=== PATIENT | female | born 1965 | race Caucasian/White ===

== ENCOUNTER → 2019-01-14 11:53 | Outpatient (CLI) | payer BC, SELFPAY ==
--- NOTE | 2019-01-14 | DI.MG.S_ITS ---
BILATERAL DIGITAL SCREENING MAMMOGRAM 3D/2D WITH CAD: 01/14/2019 CLINICAL: Routine screening. Comparison is made to exams dated: 09/18/2017 mammogram, 03/06/2015 mammogram, and 06/11/2016 mammogram - [facility]. The tissue of both breasts is heterogeneously dense. This may lower the sensitivity of mammography. Current study was also evaluated with a Computer Aided Detection (CAD) system. Linear scar markers overlie the right breast. There are post-operative changes of the right breast. No significant masses, calcifications, or other findings are seen in either breast. There has been no significant interval change. IMPRESSION: NEGATIVE There is no mammographic evidence of malignancy. A 1 year screening mammogram is recommended. This exam was interpreted at Station ID: [id number]. NOTE: For mammograms, a report in lay terms will be sent to the patient. Approximately 15% of breast malignancies will not be visualized mammographically. In the management of a palpable breast mass, a negative mammogram must not discourage biopsy of a clinically suspicious lesion. Electronically Signed By: James Garcia M.D. ecl/:01/14/2019 12:40:06 letter sent: Normal Exam ACR BI-RADS Category 1: Negative [id number]
== END ==
PROVIDERS: PCP Student in an Organized Health Care Education/Training Program; Visit Provider Student in an Organized Health Care Education/Training Program
DX: Z12.31 Encounter for screening mammogram for malignant neoplasm of breast (principal)
CPT/HCPCS: 77063; 77067

== ENCOUNTER 2019-03-02 18:31 | Emergency (ER) | payer OTHER, BC, SELFPAY ==
[2019-03-02 18:32] VITALS: BP 127/83; PULSE 80; RESP 98; TEMP 36.5; O2SAT 99; BMI 20.5
[2019-03-02 20:51] VITALS: BP 110/66; PULSE 65; RESP 14; O2SAT 97
--- NOTE | 2019-03-02 21:23 | ED_ITS ---
HPI - Skin/Abscess/Foreign Bdy <NILAM Sarah-BC - Last Filed: 03/02/19 21:23> General Chief complaint: Skin/Abscess/Foreign Body Stated complaint: staph infection right forearm Time Seen by Provider: 03/02/19 20:17 Source: patient Mode of arrival: ambulatory Limitations: no limitations History of Present Illness HPI narrative: The patient is a 53-year-old female nonsmoker with history of anxiety who presents with a chief complaint of a bacterial skin infection. She was started on doxycycline the morning. She noticed a rash last night, but developed and pustules this morning with redness going up her left arm. She has taken 1 dose of doxycycline. The redness was marked this morning and she states that has not gone beyond the marker. However she is concerned that is not im proved. She denies any fevers nausea vomiting diarrhea. She denies any shortness of breath. She denies any chills or rigors. She states that this morning, 6 tubes of blood were done. She states that wound cultures were taken from the pustules that she noticed. She stated that she is being treated for an aggressive staph infection. Related Data Home Medications Medication Instructions Recorded Confirmed Valacyclovir Hydrochloride 500 mg PO Q DAY #0 06/29/08 (Valtrex) ALBUTEROL (PROVENTIL INHALER) 0.09 mg IH PRN #0 12/07/10 lansoprazole 30 mg PO Q DAY #0 12/07/10 lorazepam [Ativan] 0.5 mg PO HS #0 12/07/10 Review of Systems <NILAM Sarah- - Last Filed: 03/02/19 21:23> Review of Systems GENERAL: Denies chills, fatigue, malaise, fever, sweats. HEENT: Denies sinus pain, ear pain, sore throat, difficulty swallowing, dizziness. RESPIRATORY: Denies dyspnea, cough, wheezing, hemoptysis, sputum. CARDIOVASCULAR: Denies chest pain, palpitations, orthopnea, edema, GASTROINTESTINAL: Denies nausea, vomiting, abdominal pain, diarrhea, constipation, melena. : Denies dysuria, frequency, incontinence, hematuria, urinary retention. MUSCULOSKELETAL: denies weakness, joint pain, or bony pain SKIN: See HPI NEUROLOGIC: Denies weakness, headache, numbness, change in speech, confusion, seizures, incoordination. PSYCHIATRIC: No concerning psychosocial issues. 12 point review of systems is negative except for those stated above PFSH <DOMO Sarah - Last Filed: 03/02/19 21:23> Medical History (Updated 03/02/19 @ 21:21 by DOMO Sarah) Anxiety (Acute) Social History Smoking Status: Never smoker Social History Smoking Status: Never smoker Exam <DOMO Sarah - Last Filed: 03/02/19 21:23> Narrative Exam Narrative: GENERAL: This is a well-nourished, well-developed patient, appears anxious HEAD: Atraumatic. Normocephalic. No temporal or scalp tenderness. EYES: Pupils equal round and reactive. Extraocular motions intact. No scleral icterus. No injection or drainage. ENT: Nose without bleeding, purulent drainage or septal hematoma. Throat without erythema, tonsillar hypertrophy or exudate. Uvula midline. Airway patent. NECK: Trachea midline. No JVD or lymphadenopathy. Supple, nontender, no meningeal signs. CARDIOVASCULAR: Regular rate and rhythm without murmurs, gallops, or rubs. RESPIRATORY: Clear to auscultation. Breath sounds equal bilaterally. No wheezes, rales, or rhonchi. No cough. No increased respiratory effort. No accessory muscle use. GASTROINTESTINAL: Abdomen soft, non-tender, nondistended. No hepato- splenomegaly, or palpable masses. No guarding. EXTREMITIES: No clubbing, cyanosis, or edema. No joint tenderness, effusion, or edema noted. BACK: Nontender without deformity or crepitance. No flank tenderness. NEURO: AOx3. SKIN: 6 pustules noted at the base of the 1st digit of the left hand along the lateral aspect of the wrist. Slight erythema noted traveling vein to mid forearm. This is on the anterior surface of the forearm. Does not go beyond marker. Approximately 8 cm. No palpable warmth. Pustules are 2-3 mm. Initial Vital Signs Initial Vital Signs: Vital Signs Temperature 97.7 F 03/02/19 18:32 Pulse Rate 80 03/02/19 18:32 Respiratory Rate 98 H 03/02/19 18:32 Blood Pressure 127/83 03/02/19 18:32 Pulse Oximetry 99 03/02/19 18:32 <Jose Roberto Giles DO - Last Filed: 03/03/19 00:18> Initial Vital Signs Initial Vital Signs: Vital Signs Temperature 97.7 F 03/02/19 18:32 Pulse Rate 80 03/02/19 18:32 Respiratory Rate 98 H 03/02/19 18:32 Blood Pressure 127/83 03/02/19 18:32 Pulse Oximetry 99 03/02/19 18:32 Course <DOMO Sarah - Last Filed: 03/02/19 21:23> Vital Signs - 8 hr 03/02/19 18:32 03/02/19 20:51 Temperature 97.7 F Pulse Rate 80 65 Respiratory Rate 98 H 14 Blood Pressure 127/83 Blood Pressure [Left Arm] 110/66 Pulse Oximetry 99 97 <Jose Roberto Giles DO - Last Filed: 03/03/19 00:18> Vital Signs - 8 hr 03/02/19 18:32 03/02/19 20:51 Temperature 97.7 F Pulse Rate 80 65 Respiratory Rate 98 H 14 Blood Pressure 127/83 Blood Pressure [Left Arm] 110/66 Pulse Oximetry 99 97 MDM - Skin/Abscess/Foreign Bdy <DOMO Sarah - Last Filed: 03/02/19 21:23> MDM Narrative Medical decision making narrative: The patient is a 53-year-old female who presents with a chief complaint of a worsening skin infection. She has taken 1 dose of antibiotic. Given her exam, I am suspicious of MRSA. The doxycycline that she is on should be treating this. I would also note expected improvement within 1 dose of antibiotics. She has no signs of systemic infection, no fever, no vomiting and is hemodynamically stable. I encouraged the patient to continue taking her antibiotics. I suggested follow-up with her PCP as well as the provider who did all of her blood work to evaluate for her wound culture results. I do not feel the need to repeat this at this point time she decided all done. She presents well and nontoxic in the emergency department. Discussed coming back to the ER for any acute concerns. Patient has no questions or concerns upon discharge. Discharge Plan Departure Patient Disposition: Home Clinical Impression: Bacterial skin infection Discharge Date/Time: 03/02/19 20:54 Interventions: ED Discharge Assessment Last Done: 03/02/19 20:54 Instructions: DI for Skin Abscess Activity Restrictions/Additional Instructions: Please follow up with her primary care physician as well as the walk-in clinic provider. Please monitor for worsening of redness, spreading despite several doses of antibiotics, as well as fever vomiting and signs of systemic illness. These are signs of possible worsening. Please come back to the emergency department for any acute concerns such as inability keep down fluids, high fevers despite [id number] medications etc Prescriptions: No Action Valacyclovir Hydrochloride (Valtrex) 500 mg PO Q DAY Qty: 0 RF: 0 lorazepam [Ativan] 0.5 MG tablet 0.5 mg PO HS Qty: 0 RF: 0 lansoprazole 30 MG capsule,delayed release(DR/EC) 30 mg PO Q DAY Qty: 0 RF: 0 ALBUTEROL (PROVENTIL INHALER) 0.09 mg IH PRN Qty: 0 RF: 0 Referrals: Jessica Ibrahim PA-C [Primary Care Provider] - <Jose Roberto Giles DO - Last Filed: 03/03/19 00:18> Cosign ED Attending Shilpa Attestation: I was available for consultation during this patient's emergency department encounter
== END 2019-03-02 20:54 | disposition home or self-care (01) ==
PROVIDERS: Emergency Provider Nurse Practitioner Family; PCP Student in an Organized Health Care Education/Training Program
DX: L08.9 Local infection of the skin and subcutaneous tissue, unspecified (principal)
CPT/HCPCS: 99282

== ENCOUNTER → 2019-03-03 15:04 | Outpatient (CLI) | payer BC, SELFPAY ==
--- NOTE | 2019-03-03 | DI.US.S_ITS ---
PROCEDURE: US RENAL COMPLETE INDICATIONS: URINARY RETENTION,PELVIC PAIN,POSTMENOPAUSAL BLEED TECHNIQUE: Real-time scanning was performed of the kidneys and bladder, with image documentation. COMPARISON: [facility], CT, KIDNEY/ URETER/BLADDER, 07/21/2011, 14:06. [facility], US, US PELVIC COMPLETE, 03/03/2019, 15:56. FINDINGS: Kidneys: Kidneys are normal in size. Right kidney measures 10.1 cm long; left kidney measures 10.2 cm long. Right renal cortical thickness is 1.6 cm; left renal cortical thickness is 2.0 cm. Renal cortical echotexture is normal. No hydronephrosis. 5 mm left upper pole nonobstructing echogenic focus, probably non-shadowing calculus versus less likely angiomyolipoma. This could be better assessed with CT KUB as clinically necessary. Additional presumed calculus measuring 4 mm in the left kidney superior pole Bladder: Pre-void bladder volume is 481 mL. Post-void residual is 5 mL. Pre-void images demonstrate no intraluminal masses or stones. On pre-void images, bilateral ureteral jets are noted with color Doppler interrogation. (Of note, ureteral jets may not be detectable in up to 25% of cases due to insufficient differences in specific gravity between ureteral and bladder urine). Miscellaneous: No free pelvic fluid. IMPRESSION: Presumed left renal nonobstructive calculi, with differential as above. Approved by: Jori Escoto M.D. on 03/07/2019 at 11:30
--- NOTE | 2019-03-03 | DI.US.S_ITS ---
PROCEDURE: US PELVIC COMPLETE INDICATIONS: POSTMENOPAUSAL BLEEDING, PELVIC PAIN TECHNIQUE: Real-time scanning was performed of the pelvic organs, with image documentation. Additional endovaginal scanning was necessary due to incomplete visualization of the adnexal and endometrial structures by transabdominal scanning. COMPARISON: [facility], , PELVIC COMPLETE, 09/11/2017, 14:44. FINDINGS: Transabdominal scanning: Limited scanning through the kidneys shows no hydronephrosis. No pathologic free abdominal or pelvic fluid. Endovaginal scanning: Uterus: Uterus is normal in size at 6.0 x 3.4 x 2.9 cm. The endometrium is ill defined and there is mild increase vascularity. 2 small intramural fibroids, largest measuring up to 12 mm. Ovaries: Normal ovary measuring 2.2 x 1.7 x 0.9 cm on the right and 1.7 x 0.8 x 0.8 cm on the left. IMPRESSION: 1. The endometrial complexes ill-defined and unable to be accurately measured and there is mild increased vascularity. If indicated, pre and post contrast gynecologic protocol MRI could be performed for further assessment. 2. 2 intramural fibroids, largest measuring up to 12 mm. Dictated by: Mario Tyler [facility] Interpreted: Rosendo Aparicio MD on 03/04/2019 at 9:09 Approved by: Rosendo Aparicio M.D. on 03/04/2019 at 13:58
== END ==
PROVIDERS: PCP Student in an Organized Health Care Education/Training Program; Visit Provider Nurse Practitioner Obstetrics & Gynecology
DX: R10.2 Pelvic and perineal pain (principal); N95.0 Postmenopausal bleeding; D25.1 Intramural leiomyoma of uterus; R33.9 Retention of urine, unspecified
CPT/HCPCS: 76770; 76830; 76856

== ENCOUNTER 2019-03-18 20:23 | Emergency (ER) | payer OTHER, SELFPAY ==
[2019-03-18 20:29] VITALS: BP 121/76; PULSE 70; RESP 15; TEMP 36.4; O2SAT 100; BMI 20.5
--- NOTE | 2019-03-18 20:59 | ED_ITS ---
HPI - Recheck/Abnormal Lab/Rx <BEST Garcia - Last Filed: 03/18/19 22:42> General Chief Complaint: Recheck/Abnormal Lab/Rx Stated Complaint: states has Strep A in her R arm, not better Time Seen by Provider: 03/18/19 20:28 Source: patient Mode of arrival: ambulatory Limitations: no limitations History of Present Illness HPI narrative: 53-year-old female with a history of strep A cellulitis to her right arm for which she recently completed a course of doxycycline for 5 days ago, presents emergency department stating that she has a slight increased redness on her right forearm. She states when she initially she stated she saw a red raised lump the night before and within the morning redness had spread rapidly upper forearm. She was given doxycycline and stated the redness c ompletely resolved. However, today she noticed a 0.5mm x 0.5mm raised lesion on her right forearm and she was worried that she had a recurrent infection. She denies fevers, chills, nausea, chest pain, shortness of breath, pain in her arms, or change in bowel or bladder patterns. Related Data Home Medications Medication Instructions Recorded Confirmed Valacyclovir Hydrochloride 500 mg PO Q DAY #0 06/29/08 (Valtrex) ALBUTEROL (PROVENTIL INHALER) 0.09 mg IH PRN #0 12/07/10 lansoprazole 30 mg PO Q DAY #0 12/07/10 lorazepam [Ativan] 0.5 mg PO HS #0 12/07/10 Previous Rx's Medication Instructions Recorded doxycycline monohydrate 100 mg PO BID 7 Days #14 tab 03/18/19 Allergies Allergy/AdvReac Type Severity Reaction Status Date / Time codeine Allergy Verified 03/18/19 20:29 erythromycin base Allergy Verified 03/18/19 20:29 metronidazole [From Flagyl] Allergy Verified 03/18/19 20:29 Penicillins Allergy Verified 03/18/19 20:29 Sulfa (Sulfonamide Allergy Verified 03/18/19 20:29 Antibiotics) Review of Systems <BEST Garcia - Last Filed: 03/18/19 22:42> Review of Systems REVIEW OF SYSTEMS: GENERAL: Denies fever or chills. HENT: Denies head trauma. EYE: Denies double vision or vision loss. CARDIOVASCULAR: Denies syncope. MUSCULOSKELETAL: Denies weakness, or deformities. INTEGUMENTARY: Complains of small area of erythema to right forearm, see HPI. NEURO: Denies numbness or tingling. PFSH <BEST Garcia - Last Filed: 03/18/19 22:42> Medical History Anxiety (Acute) Social History Smoking Status: Never smoker Social History Smoking Status: Never smoker Exam <BEST Garcia - Last Filed: 03/18/19 22:42> Initial Vital Signs Initial Vital Signs: Vital Signs Temperature 97.5 F L 03/18/19 20:29 Pulse Rate 70 03/18/19 20:29 Respiratory Rate 15 03/18/19 20:29 Blood Pressure 121/76 03/18/19 20:29 Pulse Oximetry 100 03/18/19 20:29 PHYSICAL EXAMINATION: GENERAL: Well groomed, alert, and cooperative. Answers questions promptly and appropriately. Vital signs noted. HENT: Normocephalic, atraumatic. RESPIRATORY: Normal respiratory rate, trachea midline, airway patent. No stridor, nasal flaring or accessory muscle use. MUSCULOSKELETAL: Normal gait and coordination. Equal tone and mass bilaterally. EXTREMITIES: CMS intact. Moves all extremities. SKIN: Warm, dry, soft, appropriate color for ethnicity. 1cm x 1cm laceration erythema to right forearm, slightly indurated region with tenderness to deep palpitation. NEURO: Alert and Oriented X 3. Good coordination. PSYCH: Appropriate affect and mood. <Channing Ruggiero DO - Last Filed: 03/19/19 04:31> Initial Vital Signs Initial Vital Signs: Vital Signs Temperature 97.5 F L 03/18/19 20:29 Pulse Rate 70 03/18/19 20:29 Respiratory Rate 15 03/18/19 20:29 Blood Pressure 121/76 03/18/19 20:29 Pulse Oximetry 100 03/18/19 20:29 Course <BEST Garcia - Last Filed: 03/18/19 22:42> Course Narrative: Upon discussion with patient, a pocket prescription was given if symptoms worsen due to her anxiety about how rapidly her symptoms spread and because is awakened she is unable to access the clinic. Strict instructions were given to patient to not use medication unless her symptoms worsen. Follow- up instructions discussed. Vital Signs - 8 hr 03/18/19 20:29 Temperature 97.5 F L Pulse Rate 70 Respiratory Rate 15 Blood Pressure 121/76 Pulse Oximetry 100 <Channing Ruggiero DO - Last Filed: 03/19/19 04:31> Vital Signs - 8 hr 03/18/19 20:29 Temperature 97.5 F L Pulse Rate 70 Respiratory Rate 15 Blood Pressure 121/76 Pulse Oximetry 100 MDM - Recheck/Abnormal Lab/Rx <BEST Garcia - Last Filed: 03/18/19 22:42> Medical Records Attestation: I reviewed the patient's medical records. Lab Data Attestation: I reviewed the patient's lab results. MDM Narrative Medical decision making narrative: Cellulitis versus general post infections inflammation. Prescription was given if symptoms worsen. Very low concern for systemic infection due to lack of manifestation of systemic symptoms such as fever, or a large amount of present cellulitis. Discharge Plan Departure Patient Disposition: Home Clinical Impression: Cellulitis Qualifiers: Site of cellulitis: extremity Site of cellulitis of extremity: upper extremity Laterality: right Qualified Code(s): L03.113 - Cellulitis of right upper limb Discharge Date/Time: 03/18/19 21:06 Interventions: ED Discharge Assessment Last Done: 03/18/19 21:06 Instructions: DI for Cellulitis -- Adult Activity Restrictions/Additional Instructions: Thank you for entrusting me with your care today. As discussed, it does not appear that you have an infection at this time. However since you just finished a course of antibiotics in that area and you have increasing redness, I am giving a you aprescription to wait to fill if redness worsens or spreads within the next few days please take this medication as prescribed. Follow up with her primary care provider in the next week. Return to the emergency department if he develops high fevers, chest pain, shortness of breath, or syncope. Prescriptions: New doxycycline monohydrate 100 mg tablet 100 mg PO BID 7 Days Qty: 14 RF: 0 No Action Valacyclovir Hydrochloride (Valtrex) 500 mg PO Q DAY Qty: 0 RF: 0 lorazepam [Ativan] 0.5 MG tablet 0.5 mg PO HS Qty: 0 RF: 0 lansoprazole 30 MG capsule,delayed release(DR/EC) 30 mg PO Q DAY Qty: 0 RF: 0 ALBUTEROL (PROVENTIL INHALER) 0.09 mg IH PRN Qty: 0 RF: 0 Referrals: Jessica Ibrahim PA-C [Primary Care Provider] - <Channing Ruggiero DO - Last Filed: 03/19/19 04:31> Cosign ED Attending [place] Attestation: I was immediately available in the department for consultation. Documentation has been reviewed. I agree with assessment and plan.
== END 2019-03-18 21:06 | disposition home or self-care (01) ==
PROVIDERS: Emergency Provider Nurse Practitioner; PCP Student in an Organized Health Care Education/Training Program
DX: L03.113 Cellulitis of right upper limb (principal); Y99.0 Civilian activity done for income or pay
CPT/HCPCS: 99282; 99283

== ENCOUNTER → 2019-09-14 16:37 | Outpatient (ROUT) | payer OTHER, SELFPAY | PROVIDERS: PCP Student in an Organized Health Care Education/Training Program; Visit Provider Obstetrics & Gynecology | DX: N76.0 Acute vaginitis (principal) | CPT/HCPCS: 87480; 87510; 87660 ==

== ENCOUNTER → 2019-11-18 09:00 | Outpatient (CLI) | payer OTHER, SELFPAY ==
[2019-11-20 05:38] LABS: COVID19 Sendout Not Detected (Not Detected)
== END ==
PROVIDERS: PCP Student in an Organized Health Care Education/Training Program; Referring Provider Family Medicine; Visit Provider Family Medicine
DX: Z11.59 Encounter for screening for other viral diseases (principal)
CPT/HCPCS: 87635

== ENCOUNTER → 2020-04-03 15:35 | Outpatient (CLI) | payer OTHER, SELFPAY ==
[2020-04-04 14:08] LABS: COVID19 Sendout Not Detected (Not Detected)
== END ==
PROVIDERS: PCP Student in an Organized Health Care Education/Training Program; Visit Provider Physician Assistant
DX: Z11.59 Encounter for screening for other viral diseases (principal)
CPT/HCPCS: 87635

== ENCOUNTER 2020-04-06 07:20 | Day surgery (SDC) | payer OTHER, SELFPAY ==
[2020-04-06] VITALS (7 sets, daily range): BP systolic 106–111; BP diastolic 66–72; PULSE 64–80; RESP 16–18; TEMP 35.9–36.4; O2SAT 99–100; BMI 21.1
[2020-04-06] MEDS: SODIUM CHLORIDE 0.9% 1,000 ML 200 ML IV (08:14)
--- NOTE | 2020-04-06 08:14 | PM.HP.1 ---
History of Present Illness History of Present Illness Date Patient Seen: 04/06/20 Time Patient Seen: 08:14 Chief complaint: [facility] [place]ative: This is a 54-year-old woman with history of GERD, constipation, urinary tract infections, asthma who has had 2 prior colonoscopies for unexplained abdominal pain. She says both were found to be normal or may be had removed a few polyps. The last 1 was 5 years ago which was told to follow up in 5 years for repeat scope. She denies any melena, hematochezia, unexplained weight loss, or unexplained abdominal pain. She refuses any fentanyl for the procedure and says that all of her previous scopes have been done on Versed only. ROS: Positive for GERD symptoms, constipation, asthma, headache, anemia, eczema. Thirteen system review is otherwise negative other than as mentioned below and in HPI. PE: GENERAL: Well groomed and cooperative. Appears stated age. Answers questions promptly and appropriately. Vital signs noted. HENT: Normocephalic, atraumatic. Hearing intact. EYES: Conjunctiva pink, sclera white, no periorbital swelling. CARDIOVASCULAR: Regular rate. No pedal edema. RESPIRATORY: Non-tachypneic, breathing comfortably on room air. GASTROINTESTINAL: Abdomen soft and non-distended GENITALURINARY: No flank tenderness. MUSCULOSKELETAL: Equal tone and mass bilaterally. SKIN: Warm, dry, soft, appropriate color for ethnicity. No other lesions, rashes, or wounds. NEURO: Alert and Oriented X 3. No gross sensory deficits, or cognitive issues. PSYCH: Appropriate affect and mood. Patient History Medical History Anxiety (Acute) Chicken pox (Resolved) Surgical History Breast tumor (Resolved ~2013) Family & Social History Family History Father Overdose Grandmother Stroke Dementia Grandmother Stroke Dementia Social History: household members none Tobacco & Substance use: Smoking Status Never smoker alcohol intake never Substance Use Type does not use Meds Home Medications and Allergies Home Medications Medication Instructions Recorded Confirmed Type Valacyclovir Hydrochloride 500 mg PO Q DAY #0 06/29/08 11/18/19 History (Valtrex) ALBUTEROL (PROVENTIL INHALER) 0.09 mg IH PRN #0 12/07/10 11/18/19 History lorazepam [Ativan] 0.5 mg PO HS #0 12/07/10 11/18/19 History fluconazole 150 mg tablet 150 mg PO Q3D #2 tab 09/30/19 11/18/19 Rx Allergies Allergy/AdvReac Type Severity Reaction Status Date / Time codeine Allergy Verified 04/03/20 15:34 erythromycin base Allergy Verified 04/03/20 15:34 metronidazole [From Flagyl] Allergy Verified 04/03/20 15:34 Penicillins Allergy Verified 04/03/20 15:34 Sulfa (Sulfonamide Allergy Verified 04/03/20 15:34 Antibiotics) Exam Vital Signs (past 8 hours): - 04/06/20 08:02 Temperature 97.3 F L Pulse Rate 64 Respiratory Rate 16 Blood Pressure 107/72 Pulse Oximetry 100 Oxygen Delivery Method Room Air Assessment & Plan Assessment and plan (1) Eczema: Status: Chronic (2) Post traumatic stress disorder (PTSD): Status: Chronic (3) Depression: Status: Chronic (4) Migraines: Status: Chronic (5) Headache: Status: Chronic (6) Anemia: Status: Chronic (7) Vertigo: Status: Chronic (8) Personal history of colonic polyps: Status: Acute Assessment & Plan narrative: Risks and benefits of screening colonoscopy and possible polypectomy were discussed with the patient including risk of bleeding, perforation, need for additional procedures, risks of anesthesia. The patient desires to proceed with the colonoscopy procedure. COVID-19 COVID-19 status: Negative Result date/Date tested (Pos, Neg/Pending): 04/03/20 Time Spent With Patient Time with patient: 15-24 minutes Quality VTE Deep Vein Thrombosis/Pulmonary Embolism Present on Admission: No
--- NOTE | 2020-04-06 08:41 | PM.OP.ENDO ---
Operative Date/Time/Diagnoses Date of procedure: 04/06/20 Time of procedure: 08:41 Pre-op diagnosis: Reported history of colon polyps Post-op diagnosis: other (No polyps found in the rectum or distal sigmoid colon) Procedure & Clinicians Study performed: Colonoscopy to the sigmoid colon Procedural sedation performed by the endoscopy Same procedure as scheduled: No Indications: Is a 54-year-old woman with reported history of 2 prior colonoscopies during which polyps were found. The patient refuses to have fentanyl. She says she is very sensitive to Versed and only needs a small dose. Surgeon: Madisyn Moura Procedure Notes SCOAP/Timeout: Performed Procedure in detail: The patient was brought to the room and placed in left lateral decubitus position with all bony prominences padded. A time-out was performed and then the patient was given procedural sedation starting with 1 mg of Versed and 0 mcg of fentanyl. During the course of the procedure 12 mg of Versed were given with the patient still completely alert and localization pain. Vitals were monitored throughout the procedure and remained stable. Once the patient had gone initial dose of 4 mg of Versed we began the procedure. The procedure was begun with a digital rectal exam. This was normal. I introduced the scope into the rectum, and carefully advanced it in the usual fashion. I got part way through the rectum and the patient began vocalizing pain. We gradually increased her sedation up to 12 mg of Versed with no apparent effective sedation. At this point it was clear that the patient was not tolerating procedure and we hernia given the significant dose of Versed without any response. At this point the procedure was aborted with plans to discussed with the patient trying again under anesthesia with propofol. Sedation minutes: 15 Specimen(s): none sent Complications: other (Procedure aborted due to inability to adequately sedate the patient after given 12 mg of Versed.) Impression: The rectum and sigmoid colon was fairly normal although quite tortuous. The patient did not tolerate any advancement of the scope beyond this point and was quite alert and awake on 12 mg of Versed. Post-procedure Plan for aftercare: Transfer the patient to the recovery area, and for further discussion of repeating the procedure today with propofol if an anesthesiologist is available, repeating the procedure in the future with propofol. Disposition: PACU
[2020-04-06] MEDS: MIDAZOLAM 5 MG/5 ML VIAL IV (08:45)
== END 2020-04-06 10:30 | disposition home or self-care (01) ==
PROVIDERS: PCP Student in an Organized Health Care Education/Training Program; Referring Provider Student in an Organized Health Care Education/Training Program; Visit Provider Surgery
PROC: 0DJD8ZZ Inspection of Lower Intestinal Tract, Via Natural or Artificial Opening Endoscopic (ICD-10-PCS; CPT 45378; principal; 2020-04-06 08:30)
DX: Z12.11 Encounter for screening for malignant neoplasm of colon (principal); Z86.010 Personal history of colon polyps; Z53.09 Procedure and treatment not carried out because of other contraindication
CPT/HCPCS: 45378; 99152; J2250

== ENCOUNTER → 2020-04-26 13:38 | Outpatient (CLI) | payer OTHER, SELFPAY ==
--- NOTE | 2020-04-26 13:50 | DI.MG.S_ITS ---
Patient Name: IGOR GREEN date: 1965 Sex: F Attending Physician: [place] Indications: Date: 04/26/2020 13:41 At the request of: IGOR BOLAND Procedure: MM screening mammo BI BILATERAL DIGITAL SCREENING MAMMOGRAM 3D/2D WITH CAD: 04/26/2020 CLINICAL: Routine screening. Comparison is made to exams dated: 01/14/2019 mammogram - [facility], 09/18/2017 mammogram, and 06/12/2016 mammogram - [facility]. The tissue of both breasts is heterogeneously dense. This may lower the sensitivity of mammography. Current study was also evaluated with a Computer Aided Detection (CAD) system. There are benign post operative findings in the right breast. No significant masses, calcifications, or other findings are seen in either breast. There has been no significant interval change. IMPRESSION: BENIGN There is no mammographic evidence of malignancy. A 1 year screening mammogram is recommended. This exam was interpreted at Station ID: [id number]. NOTE: For mammograms, a report in lay terms will be sent to the patient. Approximately 15% of breast malignancies will not be visualized mammographically. In the management of a palpable breast mass, a negative mammogram must not discourage biopsy of a clinically suspicious lesion. Electronically Signed By: Yoni sierra/wilbert:04/26/2020 18:00:02 letter sent: Normal Exam ACR BI-RADS Category 2: Benign Finding(s) 3342F
== END ==
PROVIDERS: PCP Student in an Organized Health Care Education/Training Program; Referring Provider Student in an Organized Health Care Education/Training Program; Visit Provider Obstetrics & Gynecology
DX: Z12.31 Encounter for screening mammogram for malignant neoplasm of breast (principal)
CPT/HCPCS: 77063; 77067

== ENCOUNTER → 2020-11-02 09:54 | Outpatient (CLI) | payer OTHER, SELFPAY ==
[2020-11-02] MEDS: COVID-19 VACC, Ad26(JANSSEN)/PF 0.5 ML IM (10:14)
[2020-11-02] MEDS: diphenhydrAMINE 25 MG TABLET 50 MG PO (17:16)
== END ==
PROVIDERS: PCP Student in an Organized Health Care Education/Training Program; Visit Provider Internal Medicine
DX: Z23 Encounter for immunization (principal)
CPT/HCPCS: 0031A; 91303

== ENCOUNTER → 2020-12-20 09:52 | Outpatient (CLI) | payer OTHER, SELFPAY ==
--- NOTE | 2020-12-20 | DI.CT.S_ITS ---
PROCEDURE: CT ABDOMEN PELVIS WO CON INDICATIONS: Unspecified abdominal pain TECHNIQUE: After the administration of oral contrast, 5 mm thick sections acquired from the diaphragms to the symphysis. 5 mm coronal and sagittal reformats were performed. For radiation dose reduction, the following was used: automated exposure control, adjustment of mA and/or kV according to patient size. COMPARISON: [facility], , US ABD/PELVIS/TRANSVAGINAL, 08/01/2005, 14:36. [facility], US, US PELVIC COMPLETE, 03/03/2019, 15:56. [facility], US, US RENAL COMPLETE, 03/03/2019, 15:50. [facility], CT, KIDNEY/ URETER/BLADDER, 07/21/2011, 14:06. FINDINGS: Image quality: Excellent. ABDOMEN: Lung bases: Lung bases are clear. Heart size is normal. Solid organs: Liver is normal in size. Gallbladder may contain sludge or tiny gallstones. Pancreas is normal in size. Spleen is normal in size. No adrenal nodules. Both kidneys are normal in size, without hydronephrosis. There is a 4 mm stone in the superior pole of the left kidney. A 1 mm stone may be present in the right kidney. Peritoneum and bowel: Bowel loops demonstrate normal wall thickness and caliber. No free fluid or air. Nodes and vessels: No retroperitoneal or mesenteric adenopathy by size criteria. Slightly prominent mesenteric lymph node in the left upper abdomen measures 0.8 cm. Aorta and inferior vena cava are normal in size. Miscellaneous: No ventral hernias. PELVIS: Genitourinary: Bladder wall thickness is normal. Uterus and ovaries are normal. No adnexal mass. No free fluid in pelvis. Miscellaneous: No inguinal hernias or adenopathy. Bones: There is a dense sclerotic focus in L1 vertebral body, most likely a bone island. No vertebral body compression fractures. IMPRESSION: 1. Bilateral small nonobstructive renal calculi. 2. Gallbladder sludge or tiny stones. 3. Slightly prominent subcentimeter mesenteric lymph node in the left upper abdomen, nonspecific, most likely secondary to mesenteric adenitis. Dictated by: Goran Baptiste M.D. on 12/20/2020 at 11:58 Approved by: Goran Baptiste M.D. on 12/20/2020 at 12:08
== END ==
PROVIDERS: PCP Student in an Organized Health Care Education/Training Program; Referring Provider Internal Medicine; Visit Provider Internal Medicine
DX: N20.0 Calculus of kidney (principal)
CPT/HCPCS: 74176

== ENCOUNTER → 2021-05-14 16:45 | Outpatient (CLI) | payer OTHER, SELFPAY ==
--- NOTE | 2021-05-14 16:48 | DI.RAD.S_ITS ---
PROCEDURE: XR CERVICAL SPINE 2V OR 3V INDICATIONS: NECK PAIN TECHNIQUE: 3 view of the cervical spine were acquired. COMPARISON: None. FINDINGS: Bones: No acute fractures or dislocations to the C7 level. The lateral masses of C1 appear intact on the odontoid view. No suspicious bony lesions. Mild disc space narrowing and degenerative endplate changes are seen, slightly worse at the C5-6 and C6-7 levels. Mild multilevel facet and uncovertebral joint hypertrophy is seen. Soft tissues: No prevertebral soft tissue swelling. IMPRESSION: No acute osseous abnormality. [id number] multilevel spondylosis. Dictated by: Cuate Wang M.D. on 05/14/2021 at 17:02 Approved by: Cuate Wang M.D. on 05/14/2021 at 17:05
--- NOTE | 2021-05-14 16:48 | DI.MG.S_ITS ---
BILATERAL DIGITAL SCREENING MAMMOGRAM 3D/2D WITH CAD: 05/14/2021 CLINICAL: Routine screening. Comparison is made to exams dated: 04/26/2020 mammogram, 01/14/2019 mammogram - [facility], and 09/18/2017 mammogram - [facility]. There are scattered fibroglandular elements in both breasts. Current study was also evaluated with a Computer Aided Detection (CAD) system. There is an oval equal density asymmetry with an indistinct margin in the right breast anterior depth central to the nipple seen on the craniocaudal view only. No other significant masses, calcifications, or other findings are seen in either breast. IMPRESSION: INCOMPLETE: NEEDS ADDITIONAL IMAGING EVALUATION The oval equal density asymmetry in the right breast is indeterminate. Mediolateral and spot compression views as well as additional views with possible ultrasound are recommended. This exam was interpreted at Station ID: [id number]. NOTE: For mammograms, a report in lay terms will be sent to the patient. Approximately 15% of breast malignancies will not be visualized mammographically. In the management of a palpable breast mass, a negative mammogram must not discourage biopsy of a clinically suspicious lesion. Electronically Signed By: Miguelangel davila/wilbert:05/15/2021 09:13:31 letter sent: Additional Imaging Needed ACR BI-RADS Category 0: Incomplete 3340F
== END ==
PROVIDERS: PCP Student in an Organized Health Care Education/Training Program; Referring Provider Nurse Practitioner; Visit Provider Student in an Organized Health Care Education/Training Program
DX: Z12.31 Encounter for screening mammogram for malignant neoplasm of breast (principal); M54.2 Cervicalgia; N64.89 Other specified disorders of breast; M47.812 Spondylosis without myelopathy or radiculopathy, cervical region
CPT/HCPCS: 72040; 77063; 77067

== ENCOUNTER → 2021-05-30 08:37 | Outpatient (CLI) | payer OTHER, SELFPAY ==
--- NOTE | 2021-05-30 | DI.MG.S_ITS ---
UNILATERAL RIGHT DIGITAL DIAGNOSTIC MAMMOGRAM 3D/2D WITH ADDITIONAL VIEWS: 05/30/2021 CLINICAL: Additional evaluation requested from prior study. Comparison is made to exams dated: 04/26/2020 mammogram, 05/14/2021 mammogram, and 01/14/2019 mammogram - [facility]. There are scattered fibroglandular elements in right breast. The previously seen asymmetry in the right breast is no longer visualized, presumably secondary to superimposed fibroglandular breast tissue on the prior exam. There are benign post operative findings in the right breast. No significant masses, calcifications, or other findings are seen in the breast. IMPRESSION: BENIGN There is no mammographic evidence of malignancy. A 1 year screening mammogram is recommended. This exam was interpreted at Station ID: [id number]. NOTE: For mammograms, a report in lay terms will be sent to the patient. Approximately 15% of breast malignancies will not be visualized mammographically. In the management of a palpable breast mass, a negative mammogram must not discourage biopsy of a clinically suspicious lesion. Electronically Signed By: Cuate garrison/wilbert:05/30/2021 09:22:12 letter sent: Normal Exam ACR BI-RADS Category 2: Benign Finding(s) 3342F
== END ==
PROVIDERS: PCP Student in an Organized Health Care Education/Training Program; Referring Provider Student in an Organized Health Care Education/Training Program; Visit Provider Student in an Organized Health Care Education/Training Program
DX: R92.8 Other abnormal and inconclusive findings on diagnostic imaging of breast (principal)
CPT/HCPCS: 77065; G0279

== ENCOUNTER → 2022-06-03 16:50 | Outpatient (CLI) | payer OTHER, SELFPAY ==
--- NOTE | 2022-06-03 | DI.MG.S_ITS ---
BILATERAL DIGITAL SCREENING MAMMOGRAM 3D/2D WITH CAD: 06/03/2022 CLINICAL: Routine screening. Comparison is made to exams dated: 05/14/2021 mammogram, 04/26/2020 mammogram, and 01/14/2019 mammogram - [facility]. There are scattered areas of fibroglandular density in both breasts (category b / 25%-50% glandular tissue). Current study was also evaluated with a Computer Aided Detection (CAD) system. There is a new 0.3 cm oval equal density focal asymmetry in the left breast at 1 o'clock posterior depth. No other significant masses, calcifications, or other findings are seen in either breast. IMPRESSION: INCOMPLETE: NEEDS ADDITIONAL IMAGING EVALUATION The new 0.3 cm oval equal density focal asymmetry in the left breast resembles a cyst or a lymph node and is indeterminate. Additional views with possible ultrasound are recommended. Based on the Tyrer Cuzick model (a risk assessment model) the patient's lifetime risk is 7.8% and her 10 year risk is 2.4%. According to the ACR, ACS, and NCCN guidelines, an annual breast MRI exam along with mammogram is recommended if the patient's lifetime risk is 20% or greater. This exam was interpreted at Station ID: [id number]. NOTE: For mammograms, a report in lay terms will be sent to the patient. Approximately 15% of breast malignancies will not be visualized mammographically. In the management of a palpable breast mass, a negative mammogram must not discourage biopsy of a clinically suspicious lesion. Electronically Signed By: Yoni sierra/wilbert:06/04/2022 07:54:48 copy to: CAR[place]INA Noland [employer] [facility] letter sent: Additional Imaging Needed ACR BI-RADS Category 0: Incomplete 3340F
== END ==
PROVIDERS: PCP Student in an Organized Health Care Education/Training Program; Referring Provider Student in an Organized Health Care Education/Training Program; Visit Provider Student in an Organized Health Care Education/Training Program
DX: Z12.31 Encounter for screening mammogram for malignant neoplasm of breast (principal)
CPT/HCPCS: 77063; 77067

== ENCOUNTER → 2022-06-26 10:28 | Outpatient (CLI) | payer OTHER, SELFPAY ==
--- NOTE | 2022-06-26 | DI.US.S_ITS ---
LIMITED ULTRASOUND OF LEFT BREAST: 06/26/2022 CLINICAL: Patient returns today to evaluate an asymmetry in the left breast. Comparison is made to exams dated: 06/26/2022 mammogram, 06/03/2022 mammogram, 05/14/2021 mammogram, 04/26/2020 mammogram, 01/14/2019 mammogram - [facility], and 09/18/2017 mammogram - [facility]. Color flow and real-time ultrasound of the left breast 1 o'clock region were performed. Martinez scale images of the real-time examination were reviewed. There is a 0.3 cm mass in the left breast at 1 o'clock posterior depth. IMPRESSION: PROBABLY BENIGN The 0.3 cm mass in the left breast is probably benign. A precautionary follow-up mammogram in 6 months is recommended. to ensure that there is no underlying visible mass. This exam was interpreted at Station ID: [id number]. Electronically Signed By: Erlin Franks M.D. jr/:06/26/2022 14:31:17 copy to: CAR[place] Noland [employer]OCIATE [employer] [facility] letter sent: Followup Recommended Ultrasound BI-RADS: 3 Probably benign
--- NOTE | 2022-06-26 | DI.MG.S_ITS ---
UNILATERAL LEFT DIGITAL DIAGNOSTIC MAMMOGRAM 3D/2D WITH ADDITIONAL VIEWS: 06/26/2022 CLINICAL: Additional evaluation requested from prior study. Comparison is made to exams dated: 06/03/2022 mammogram, 05/14/2021 mammogram, and 04/26/2020 mammogram - [facility]. There are scattered areas of fibroglandular density in the left breast (category b / 25%-50% glandular tissue). There is a stable 0.3 cm oval equal density focal asymmetry in the left breast at 1 o'clock middle depth. No other significant masses or calcifications are seen in the breast. IMPRESSION: INCOMPLETE: NEEDS ADDITIONAL IMAGING EVALUATION The stable 0.3 cm oval equal density focal asymmetry in the left breast resembles a cyst or a lymph node and is indeterminate. An ultrasound is recommended. Based on the Tyrer Cuzick model (a risk assessment model) the patient's lifetime risk is 7.8% and her 10 year risk is 2.4%. According to the ACR, ACS, and NCCN guidelines, an annual breast MRI exam along with mammogram is recommended if the patient's lifetime risk is 20% or greater. This exam was interpreted at Station ID: [id number]. NOTE: For mammograms, a report in lay terms will be sent to the patient. Approximately 15% of breast malignancies will not be visualized mammographically. In the management of a palpable breast mass, a negative mammogram must not discourage biopsy of a clinically suspicious lesion. Electronically Signed By: Erlin Franks M.D., jr/wilbert:06/26/2022 14:29:45 copy to: [place] Noland [employer] [facility] letter sent: Additional Imaging Needed ACR BI-RADS Category 0: Incomplete 3340F
== END ==
PROVIDERS: PCP Student in an Organized Health Care Education/Training Program; Referring Provider Student in an Organized Health Care Education/Training Program; Visit Provider Student in an Organized Health Care Education/Training Program
DX: R92.8 Other abnormal and inconclusive findings on diagnostic imaging of breast (principal); N64.89 Other specified disorders of breast
CPT/HCPCS: 76642; 77065; G0279

== ENCOUNTER → 2023-02-02 11:50 | Outpatient (CLI) | payer OTHER, SELFPAY ==
--- NOTE | 2023-02-02 | DI.MG.S_ITS ---
UNILATERAL LEFT DIGITAL DIAGNOSTIC MAMMOGRAM 3D/2D SHORT-TERM FOLLOW-UP: 02/02/2023 CLINICAL: Short term follow up for the left breast. Comparison is made to exams dated: 06/26/2022 mammogram, 06/03/2022 mammogram, and 05/14/2021 mammogram - [facility]. There are scattered areas of fibroglandular density in the left breast (category b / 25%-50% glandular tissue). There is a stable 0.3 cm oval equal density focal asymmetry in the left breast at 1 o'clock middle depth. This was not seen on the prior ultrasound. No other significant masses or calcifications are seen in the breast. IMPRESSION: PROBABLY BENIGN The stable 0.3 cm oval equal density focal asymmetry in the left breast is probably benign. A follow-up mammogram in 6 months is recommended. Based on the Tyrer Cuzick model (a risk assessment model) the patient's lifetime risk is 7.7% and her 10 year risk is 2.5%. According to the ACR, ACS, and NCCN guidelines, an annual breast MRI exam along with mammogram is recommended if the patient's lifetime risk is 20% or greater. This exam was interpreted at Station ID: [id number]. NOTE: For mammograms, a report in lay terms will be sent to the patient. Approximately 15% of breast malignancies will not be visualized mammographically. In the management of a palpable breast mass, a negative mammogram must not discourage biopsy of a clinically suspicious lesion. Electronically Signed By: Aguilar Dotson M.D. lc/:02/02/2023 12:43:52 copy to: CAROLINA Noland [facility] letter sent: Followup Recommended ACR BI-RADS Category 3: Probably benign 3343F
== END ==
PROVIDERS: PCP Student in an Organized Health Care Education/Training Program; Referring Provider Student in an Organized Health Care Education/Training Program; Visit Provider Student in an Organized Health Care Education/Training Program
DX: R92.8 Other abnormal and inconclusive findings on diagnostic imaging of breast (principal); N64.89 Other specified disorders of breast
CPT/HCPCS: 77065; G0279

== ENCOUNTER → 2023-09-16 13:30 | Outpatient (CLI) | payer OTHER, SELFPAY ==
--- NOTE | 2023-09-16 13:33 | DI.MG.S_ITS ---
BILATERAL DIGITAL DIAGNOSTIC MAMMOGRAM 3D/2D: 09/16/2023 CLINICAL: Short term follow up of the left breast, due for bilateral imaging. Comparison is made to exams dated: 02/02/2023 mammogram, 06/26/2022 mammogram, 06/03/2022 mammogram, 05/30/2021 mammogram, 05/14/2021 mammogram, and 04/26/2020 mammogram - . There are scattered areas of fibroglandular density in both breasts (category b / 25%-50% glandular tissue). There is a 0.3 cm oval focal asymmetry in the left breast at 1 o'clock middle depth. This is less prominent and was not seen on the prior ultrasound. No other significant masses, calcifications, or other findings are seen in either breast. Post operative finding in the right breast. IMPRESSION: PROBABLY BENIGN The 0.3 cm oval focal asymmetry in the left breast is probably benign. A follow-up mammogram in 12 months is recommended to demonstrate long-term stability. Based on the Tyrer Cuzick model (a risk assessment model) the patient's lifetime risk is 7.6% and her 10 year risk is 2.6%. According to the ACR, ACS, and NCCN guidelines, an annual breast MRI exam along with mammogram is recommended if the patient's lifetime risk is 20% or greater. This exam was interpreted at Station ID: [id number]. NOTE: For mammograms, a report in lay terms will be sent to the patient. Approximately 15% of breast malignancies will not be visualized mammographically. In the management of a palpable breast mass, a negative mammogram must not discourage biopsy of a clinically suspicious lesion. Electronically Signed By: Quentin Olmos M.D. slc/:09/16/2023 14:09:54 copy to: [place] Noland [employer] [facility] letter sent: Followup Recommended ACR BI-RADS Category 3: Probably benign 3343F
== END ==
LOC: MAMMO 13:31
PROVIDERS: PCP Student in an Organized Health Care Education/Training Program; Referring Provider Student in an Organized Health Care Education/Training Program; Visit Provider Student in an Organized Health Care Education/Training Program
DX: R92.8 Other abnormal and inconclusive findings on diagnostic imaging of breast (principal); R92.323 Mammographic fibroglandular density, bilateral breasts; N64.89 Other specified disorders of breast
CPT/HCPCS: 77066; G0279

== ENCOUNTER → 2024-02-12 07:33 | Outpatient (CLI) | payer OTHER, SELFPAY ==
--- NOTE | 2024-02-12 | DI.US.S_ITS ---
PROCEDURE: US CAROTID DOPPLER BI INDICATIONS: Hyperlipidemia, unspecified TECHNIQUE: Color and pulse Doppler interrogation was performed of both carotid systems, with image documentation and velocity measurements. COMPARISON: None. FINDINGS: Stenosis calculations are based on SRU (Society of Radiologists in Ultrasound) criteria. Right side: Brachial blood pressure: 111/16 mm Hg. Common carotid artery peak systolic velocity: 85 cm/sec. Internal carotid artery peak systolic velocity: 103 cm/sec. Internal carotid artery end diastolic velocity: 52 cm/sec. External carotid artery peak systolic velocity: 112 cm/sec. ICA/CCA peak systolic ratio: 1.2. Martinez scale imaging description: Mild atheromatous plaque. Percent internal carotid artery stenosis: Less than 50% stenosis. Vertebral artery: Flow direction is antegrade. Left side: Brachial blood pressure: 107/61 mm Hg. Common carotid artery peak systolic velocity: 96 cm/sec. Internal carotid artery peak systolic velocity: 116 cm/sec. Internal carotid artery end diastolic velocity: 59 cm/sec. External carotid artery peak systolic velocity: 74 cm/sec. ICA/CCA peak systolic ratio: 1.2. Martinez scale imaging description: Mild atheromatous plaque at the bifurcation Percent internal carotid artery stenosis: Less than 50% stenosis. Vertebral artery: Flow direction is antegrade. IMPRESSION: Less than 50% stenosis of the bilateral internal carotid arteries. Dictated by: Ginny Samuels M.D. on 02/12/2024 at 8:58 Approved by: Ginny Samuels M.D. on 02/12/2024 at 9:01
== END ==
LOC: US 07:34
PROVIDERS: PCP Student in an Organized Health Care Education/Training Program; Referring Provider Student in an Organized Health Care Education/Training Program; Visit Provider Student in an Organized Health Care Education/Training Program
DX: Z13.6 Encounter for screening for cardiovascular disorders (principal); E78.5 Hyperlipidemia, unspecified; I65.23 Occlusion and stenosis of bilateral carotid arteries
CPT/HCPCS: 93880